=== PATIENT | male | born 1980 | race Hispanic/Latino ===

== ENCOUNTER 2017-02-26 16:59 | Inpatient (IN) | payer MEDICARE, MEDICAID, OTHER ==
--- NOTE | 2017-02-26 17:11 | ED PDOC ---
Arrival/HPI - General Historian: Patient, EMS <Carmen Watkins - Last Filed: 02/26/17 17:07> <Stewart Ardon - Last Filed: 02/26/17 17:17> - General Time Seen by Provider: 02/26/17 17:03 - History of Present Illness Narrative History of Present Illness (Text): 02/26/17 17:07 36 yr old male transferred from [place] for Psychatric admission for bipolor depression with SI. pt states he is depressed and angry and doesnt want to go back to his currently living situation. denies cp or sob. no abdominal pain. no dizziness or weakness. no other complaints. (Carmen Watkins) Past Medical History - Provider Review Nursing Documentation Reviewed: Yes - Travel History Have you recently traveled outside [place] w/in the past 3 mons?: No - Tetanus Immunization Tetanus Immunization: Unknown <Carmen Watkins - Last Filed: 02/26/17 17:07> Family/Social History - Physician Review Nursing Documentation Reviewed: Yes Family/Social History: Unknown Family HX <Carmen Watkins - Last Filed: 02/26/17 17:07> Review of Systems - Review of Systems Constitutional: absent: Fatigue, Fevers Respiratory: absent: SOB, Cough Cardiovascular: absent: Chest Pain, Palpitations Gastrointestinal: absent: Abdominal Pain, Nausea, Vomiting Musculoskeletal: absent: Arthralgias Skin: absent: Rash, Pruritis Neurological: absent: Headache, Dizziness Psychiatric: Depression, Suicidal Ideation <Carmen Watkins - Last Filed: 02/26/17 17:07> Physical Exam Vital Signs Reviewed: Yes Temperature: Afebrile Blood Pressure: Hypertensive Pulse: Regular Respiratory Rate: Normal Appearance: Positive for: Well-Appearing, Non-Toxic, Comfortable Pain Distress: None Mental Status: Positive for: Alert and Oriented X 3 - Systems Exam Head: Present: Atraumatic Mouth: Present: Moist Mucous Membranes Neck: Present: Normal Range of Motion Respiratory/Chest: Present: Clear to Auscultation Cardiovascular: Present: Regular Rate and Rhythm Abdomen: No: Tenderness Neurological: Present: GCS=15, Speech Normal Skin: Present: Warm, Dry, Normal Color. No: Rashes Psychiatric: Present: Alert, Oriented x 3 <Carmen Watkins - Last Filed: 02/26/17 17:07> Vital Signs Temp Pulse Resp BP Pulse Ox 02/26/17 17:11 98.4 F 75 20 153/88 H 99 Medical Decision Making - Lab Interpretations I have reviewed the lab results: Yes <Carmen Watkins - Last Filed: 02/26/17 17:07> <Stewart Ardon - Last Filed: 02/26/17 17:17> ED Course and Treatment: 02/26/17 17:09 36yr old male with bipolar depression. transfer from [place] to go to behavioral health floor. accepting physician dr. phillips/dr. souza. impression; bipolar depression admit to behavioral health floor. (Carmen Watkins) - PA / MEDICATION CARE MANAGER / Resident Statement / has reviewed & agrees with the documentation as recorded. / has examined the patient and agrees with the treatment plan. <Stewart Ardon - Last Filed: 02/26/17 17:17> Disposition/Present on Arrival - Present on Arrival Any Indicators Present on Arrival: No History of DVT/PE: No History of Uncontrolled Diabetes: No Urinary Catheter: No History of Decub. Ulcer: No - Disposition Have Diagnosis and Disposition been Completed?: Yes Disposition Time: 17:10 Patient Plan: Admission <Carmen Watkins - Last Filed: 02/26/17 17:07> <Stewart Ardon - Last Filed: 02/26/17 17:17> - Disposition Diagnosis: Bipolar depression Disposition: HOSPITALIZED Condition: FAIR
--- NOTE | 2017-02-27 00:57 | PCM.BM ---
<Dano Verachris - Last Filed: 02/27/17 00:54> Treatment Plan Problems - Problems identified on initial assessmt Delusions Date Initiated: 02/27/17 Time Initiated: 00:56 Assessment reference: NA Status: Active Altered Thought Process Date Initiated: 02/27/17 Time Initiated: 00:57 Assessment reference: NA Status: Active Medication nonadherence Date Initiated: 02/27/17 Time Initiated: 00:57 Assessment reference: NA Status: Active Altered Sleep Patterns Date Initiated: 02/27/17 Time Initiated: 00:58 Assessment reference: NA Status: Active Treatment assets and liabiliti Patient Assests: cooperative, self-reliant, ADL independent, physically healthy Patient Liabilities: live alone, poor support system - Milieu Protocol Maintain good personal hygiene: daily Encourage regular showers, daily Remind patient to perform daily oral care, daily Assist patient to perform ADL's Maintain personal safety: every shift Educate patient to report safety concerns to staff, every shift Monitor environment for contraband/sharps Medication safety: Monitor for expected outcome, potential side effects: every shift, Assess barriers to learning: every shift, Assess readiness for medication education: every shift Discharge/Continuing Care - Education Needs Education Needs: Patient Medication, Patient Diagnosis/Disease Process, Patient Coping Skills, Patient Community resources, Patient Health Practices/Safety, Patient Aftercare Safety Plan - Discharge Discharge Criteria: Free of Suicidal thoughts, Free of paranoid thoughts, Free of agitation, Normal sleep pattern <Trinh Morgan - Last Filed: 02/28/17 15:31> Family Contact Family involvement: Famliy/SO not involved Family contact: Patient declines to allow family contact at present - Outside Agency [facility] involvment: Following patient during stay, Information-sharing Agency contact name: [facility] Agency contact number: [phone] - Goals for Treatment Patient goals for treatment: "To get a new apartment...I'm being racially profiled." <Marilin Kuhn - Last Filed: 03/02/17 16:01> - Diagnosis (1) Schizoaffective disorder Status: Acute Interventions: 03/02/17 16:01 Psychoeducation/psychotherapy Psychopharmacology/adjustment of medications as needed/ monitoring possible side effects Evaluate pt on daily basis Compliance with medications and follow up appointments Long acting medication if pt is noncompliant with pill form Suicide and homicide risk assessment and prevention, coping strategies, safety plan Relapse prevention Reduction of symptoms Improve functional status Possible assertive community treatment Cognitive behavioral therapy Family involvement Possible social skill training as outpatient
[2017-02-27] MEDS ORDERED: Magnesium Hydroxide Susp 30 ml UD PO PRN (02:27)
[2017-02-27] MEDS: Alum-Mag Hydrox-Simethicone Susp (30 mL) PO PRN (02:31)
[2017-02-27 08:06] LABS: BASO # 0.02 K/mm3 (0.0-2.0); BASO % 0.3 % (0.0-3.0); EOS # 0.1 (0.0-0.7); EOS % 1.2 % (1.5-5.0); GRAN # 2.49 (1.4-6.5); GRAN % 42.2 % (50.0-68.0); HEMATOCRIT 43.6 % (42.0-52.0); LYMPH # 2.9 (1.2-3.4); LYMPH % 49.4 % (22.0-35.0); MEAN CELL VOLUME 92.8 fl (80.0-105.0); MEAN CORPUSCULAR HEMOGLOBIN 32.1 pg (25.0-35.0); MEAN CORPUSCULAR HGB CONC 34.6 g/dl (31.0-37.0); MONO # 0.4 (0.1-0.6); MONO % 6.9 % (1.0-6.0); RED CELL DISTRIBUTION WIDTH 12.2 % (11.5-14.5); WHITE BLOOD COUNT 5.9 10^3/ul (4.5-11.0)
[2017-02-27 08:13] LABS: ALB/GLOB RATIO 1.6 (1.1-1.8); ALKALINE PHOSPHATASE 46 U/L (38-126); ALT/SGPT 63 U/L (7-56); AST/SGOT 33 U/L (17-59); BILIRUBIN,TOTAL 1.5 mg/dL (0.2-1.3); BLOOD UREA NITROGEN 19 mg/dL (7-21); CALCIUM 9.6 mg/dL (8.4-10.5); CARBON DIOXIDE 28 mmol/L (21-33); CHLORIDE 106 mmol/L (98-107); CHOLESTEROL 146 mg/dL (130-200); GFR AFRICAN-AMERICAN > 60; GLUCOSE,RANDOM 98 mg/dL (70-110); POTASSIUM 4.1 mmol/L (3.6-5.0); SODIUM 144 mmol/L (132-148); TOTAL PROTEIN 7.3 g/dL (5.8-8.3)
[2017-02-27 08:27] LABS: FREE T4 0.91 ng/dL (0.78-2.19)
[2017-02-27 08:41] LABS: THYROID STIMULATING HORMONE 2.4 mIU/mL (0.46-4.68)
--- NOTE | 2017-02-27 12:43 | CON ---
DATE: HISTORY OF PRESENT ILLNESS: I saw Tima in the psychiatric unit. I was consulted to take care of him medically. He comes in with a history of being a 36-year-old man from [place] who came in with very bad depression, suicidal ideation and depressed and angry. He do not want to go back to his current living situation and very upset. At this time, he is more comfortable. He is in better spirits and he was telling me that his girlfriend lives 2 hours away and he cannot get to her. He is also very curious about testing for sexually transmitted diseases like HIV because sometimes he does not use a condom when he has sex. sort of preoccupied with that with me, so I will do a HIV test on him. PAST MEDICAL HISTORY: He had no real medical history. There are some bipolar, depression and anger issues. FAMILY HISTORY: No known family history. SOCIAL HISTORY: Denies smoking, drinking or drugs. ALLERGIES HE HAS ALLERGIES TO THORAZINE. REVIEW OF SYSTEMS: No acute vision changes or hearing changes. No sore throat. No chest pain. No shortness of breath. No abdominal pain. No leg pain. He is just upset, depressed and little angry. PHYSICAL EXAMINATION: GENERAL: He is well appearing, nontoxic and comfortable at this time. Alert and oriented x3. VITAL SIGNS: He has 98.4 temperature, 75 pulse, 20 respiratory rate, 153/88 blood pressure and 99% O2 sat on room air. HEENT: Head is atraumatic and normocephalic. Throat is moist. Extraocular muscles are intact. NECK: Supple. HEART: Regular rate. LUNGS: Clear to auscultation bilaterally. No wheezes. No rhonchi. ABDOMEN: Soft and nontender. Positive bowel sounds. No guarding. No rebound. No CVA tenderness. EXTREMITIES: No edema. NEUROLOGIC: GCS is 15. Cranial nerves II through XII grossly intact. He can smile. He can stick out his tongue in midline. He can close his eyes tight. He can put his arms over his head. Alert and oriented x3. THYROID: Midline. No palpable appreciable lymphadenopathy. LABORATORY DATA: He has a 144 sodium, potassium 4.1, BUN 19, creatinine 1, GFR is greater than 60, sugar is 98, calcium is 9.6, total bilirubin is 1.5, AST is 33, ALT is 63, alkaline phosphatase is 46, total protein is 7.3, albumin is 4.5, albumin 2.9, triglycerides 112, total cholesterol is 146, LDL is 108, TSH is 2.4, white count is 5.9, hemoglobin 15.1, hematocrit 43.6 and platelets are 187. ASSESSMENT AND PLAN: He has blood test tomorrow and HIV test tomorrow. I will check his labs. He is on Ativan, milk of magnesia, Maalox, Risperdal and Sonata. Regular diet as per psychiatry. I will continue to follow. His last blood pressure was 126/86. I will put him on blood pressure medications. Bill Jamil DO MTDD
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
[2017-02-28 07:57] LABS: HEMATOCRIT 42.6 % (42.0-52.0); MEAN CORPUSCULAR HEMOGLOBIN 32.5 pg (25.0-35.0); MEAN PLATELET VOLUME 9.9 fl (7.0-11.0); RED CELL DISTRIBUTION WIDTH 12.2 % (11.5-14.5); WHITE BLOOD COUNT 6.8 10^3/ul (4.5-11.0)
[2017-02-28 08:58] LABS: ALB/GLOB RATIO 1.7 (1.1-1.8); ALKALINE PHOSPHATASE 46 U/L (38-126); ALT/SGPT 60 U/L (7-56); AST/SGOT 29 U/L (17-59); BILIRUBIN,TOTAL 1.2 mg/dL (0.2-1.3); BLOOD UREA NITROGEN 18 mg/dL (7-21); CALCIUM 9.3 mg/dL (8.4-10.5); CARBON DIOXIDE 30 mmol/L (21-33); CHLORIDE 104 mmol/L (98-107); GFR AFRICAN-AMERICAN > 60; GLUCOSE,RANDOM 91 mg/dL (70-110); POTASSIUM 4.1 mmol/L (3.6-5.0); SODIUM 144 mmol/L (132-148); TOTAL PROTEIN 6.9 g/dL (5.8-8.3)
--- NOTE | 2017-02-28 10:31 | PN ---
SUBJECTIVE: I saw the patient in his room. He is doing better. He is going to feel better. He had a good night sleep last night. He is eating well. He is on Ativan, Maalox, milk of magnesia, Sonata and Zyprexa. PHYSICAL EXAMINATION: VITAL SIGNS: He has 98.1 temperature, 59 pulse, 123/73 blood pressure, 18 respiratory rate, 96% O2 sat on room air. HEENT: His head is atraumatic and normocephalic. HEART: Regular rate. LUNGS: Clear to auscultation. ABDOMEN: Soft, nontender. EXTREMITIES: No edema. LABORATORY DATA: He has a 6.8 white count, 14.9 hemoglobin, 42.6 hematocrit with 190 platelets. Sodium 144, potassium 4.1, BUN is 18, creatinine 1.1, GFR is greater than 60, sugar is 91, calcium is 9.3. Total bili is 1.2, AST is 29, ALT is 60, alk phos is 46. Total protein is 6.9, albumin is 4.3, globulin 2.6. TSH is 2.4. RPR is nonreactive. He is starting to come around, he tells me is little bit clear. We will continue with aggressive treatment and care by psychiatry. He has depression and bipolar. He had suicidal thoughts, which I think have now sort of left him. We will continue with aggressive treatment and care as per psychiatry. We will follow. Bill Jamil DO MTDD
--- NOTE | 2017-02-28 14:26 | PCM.PYCHPN ---
Psychiatric Progress Note - Psychiatric Progress Note Patient seen today, length of contact: 30min Patient Chief Complaint: "I am okay.." Medical Problems: pt relatively healthy, no major medical issues Diagnostic Results: 02/28/17 07:30 02/28/17 07:30 Lab Results 02/28/17 07:30: Sodium 144, Potassium 4.1, Chloride 104, Carbon Dioxide 30, Anion Gap 14, BUN 18, Creatinine 1.1, Est GFR ( Amer) > 60, Est GFR (Non- Af Amer) > 60, Random Glucose 91, Calcium 9.3, Total Bilirubin 1.2, AST 29, ALT 60 H, Alkaline Phosphatase 46, Total Protein 6.9, Albumin 4.3, Globulin 2.6, Albumin/Globulin Ratio 1.7 02/28/17 07:30: WBC 6.8, RBC 4.58, Hgb 14.9, Hct 42.6, MCV 93.0, MCH 32.5, MCHC 35.0, RDW 12.2, Plt Count 190, MPV 9.9 02/27/17 07:54: RPR Nonreactive 02/27/17 07:54: Free T4 0.91, TSH 3rd Generation 2.40 02/27/17 07:54: Sodium 144, Potassium 4.1, Chloride 106, Carbon Dioxide 28, Anion Gap 14, BUN 19, Creatinine 1.0, Est GFR ( Amer) > 60, Est GFR (Non- Af Amer) > 60, Random Glucose 98, Calcium 9.6, Total Bilirubin 1.5 H, AST 33, ALT 63 H, Alkaline Phosphatase 46, Total Protein 7.3, Albumin 4.5, Globulin 2.9 , Albumin/Globulin Ratio 1.6, Triglycerides 112, Cholesterol 146, LDL Cholesterol Direct 108, HDL Cholesterol 32 02/27/17 07:54: WBC 5.9, RBC 4.70, Hgb 15.1, Hct 43.6, MCV 92.8, MCH 32.1, MCHC 34.6, RDW 12.2, Plt Count 187, MPV 10.0, Gran % 42.2 L, Lymph % (Auto) 49.4 H, Miller % (Auto) 6.9 H, Eos % (Auto) 1.2 L, Baso % (Auto) 0.3, Gran # 2.49, Lymph # 2.9, Miller # 0.4, Eos # 0.1, Baso # 0.02 Vital Signs Temp Pulse Resp BP Pulse Ox 02/28/17 06:47 98.1 F 59 L 18 123/73 96 02/27/17 15:51 78 132/80 02/26/17 19:14 70 18 126/86 96 02/26/17 17:56 98.4 F 68 16 120/85 98 02/26/17 17:11 98.4 F 75 20 153/88 H 99 DSM 5 Symptoms Update: Shortly pt is 36 yo male with long h/o mental illness, most likely h/ o schizoaffective disorder, multiple psychiatric admissions, including state hospitalization, was transferred from the [place] for evaluation of psychotic behavior and possible suicidal and homicidal ideation. pt was seen today with SW, pt has some positive changes, pt is less paranoid, less dramatic, was able to participate in interview. pt is registered sex offender, SW spoke to the [facility] team, pt has h/o with compliance in the past , less paranoid when on meds. See SW notes for more detailed info. pt tolerates meds well, no side effects observed or reported. 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 Impression: schizoaffective disorder CXR: no acute radiographic findings for the chest. EKG WNL UDS negative Treatment plan: Milieu/structure/supportive therapy Medical consult appreciated, see medical team note for more detailed info consultation for discharge plan and social issues Med management zyprexa, will be increased to 2.5mg po am and 5mg hs for psychosis and mood stabilization trazodone 50mg po hs prn for insomnia and depression Family involvement Follow up on labs Will monitor closely SW evaluation for d/c planning Pt was educated about risk/benefits and alternatives of medications, coping strategies (safety plan, suicide prevention), relapse prevention, importance of follow up with psychiatrist and therapist, stay away from drugs/alcohol/smoking tentative discharge on 03/10/17 Medication Change: Yes (zyprexa increased) Medical Record Reviewed: Yes Consults ordered or reviewed: medial consult appreciated Goal/Treatment Plan - Goal/Treatment Plan Need for Continued Stay: Remain at risks for inpatient hospitalization, Severe depression anxiety, Discharge may exacerbated symptoms, Severe functional impairment
--- NOTE | 2017-03-01 09:54 | PN ---
DATE: SUBJECTIVE: I saw him in the psychiatric unit. He is hungry. He is sleeping well. He is feeling better mentally. He feels like he is back to normal, he would like to leave. He is on Ativan, Maalox, milk of magnesia, Sonata, and Zyprexa. He feels clear in the head. PHYSICAL EXAMINATION: VITAL SIGNS: He has 98.1 temperature, 52 pulse, 120/81 blood pressure, 20 respiratory rate, and 96% O2 sat on room air. HEENT: Head is atraumatic and normocephalic. HEART: Regular rate. LUNGS: Clear to auscultation. ABDOMEN: Soft. EXTREMITIES: No edema. ASSESSMENT AND PLAN: He is in good spirits. He is feeling better overall mentally. He is participating. He is eating well and we will see how the psychiatry feels. We will follow. Continue aggressive treatment and care with Tima Murcia, who is here with depression, bipolar, and suicidal ideation. Bill Jamil DO
--- NOTE | 2017-03-01 14:53 | PCM.PYCHPN ---
Psychiatric Progress Note - Psychiatric Progress Note Patient seen today, length of contact: 30min Patient Chief Complaint: "my whole body feels differently, I feel and think better, my thoughts are better organized..." Medical Problems: pt relatively healthy, no major medical issues Diagnostic Results: 02/28/17 07:30 02/28/17 07:30 Lab Results 02/28/17 07:30: Sodium 144, Potassium 4.1, Chloride 104, Carbon Dioxide 30, Anion Gap 14, BUN 18, Creatinine 1.1, Est GFR ( Amer) > 60, Est GFR (Non- Af Amer) > 60, Random Glucose 91, Calcium 9.3, Total Bilirubin 1.2, AST 29, ALT 60 H, Alkaline Phosphatase 46, Total Protein 6.9, Albumin 4.3, Globulin 2.6, Albumin/Globulin Ratio 1.7 02/28/17 07:30: WBC 6.8, RBC 4.58, Hgb 14.9, Hct 42.6, MCV 93.0, MCH 32.5, MCHC 35.0, RDW 12.2, Plt Count 190, MPV 9.9 02/27/17 07:54: RPR Nonreactive 02/27/17 07:54: Free T4 0.91, TSH 3rd Generation 2.40 02/27/17 07:54: Sodium 144, Potassium 4.1, Chloride 106, Carbon Dioxide 28, Anion Gap 14, BUN 19, Creatinine 1.0, Est GFR ( Amer) > 60, Est GFR (Non- Af Amer) > 60, Random Glucose 98, Calcium 9.6, Total Bilirubin 1.5 H, AST 33, ALT 63 H, Alkaline Phosphatase 46, Total Protein 7.3, Albumin 4.5, Globulin 2.9 , Albumin/Globulin Ratio 1.6, Triglycerides 112, Cholesterol 146, LDL Cholesterol Direct 108, HDL Cholesterol 32 02/27/17 07:54: WBC 5.9, RBC 4.70, Hgb 15.1, Hct 43.6, MCV 92.8, MCH 32.1, MCHC 34.6, RDW 12.2, Plt Count 187, MPV 10.0, Gran % 42.2 L, Lymph % (Auto) 49.4 H, [place] % (Auto) 6.9 H, Eos % (Auto) 1.2 L, Baso % (Auto) 0.3, Gran # 2.49, Lymph # 2.9, [place] # 0.4, Eos # 0.1, Baso # 0.02 Vital Signs Temp Pulse Resp BP Pulse Ox 02/28/17 06:47 98.1 F 59 L 18 123/73 96 02/27/17 15:51 78 132/80 02/26/17 19:14 70 18 126/86 96 02/26/17 17:56 98.4 F 68 16 120/85 98 02/26/17 17:11 98.4 F 75 20 153/88 H 99 Temp Pulse Resp BP Pulse Ox 98.1 F 52 L 20 128/81 96 03/01/17 07:16 03/01/17 07:16 03/01/17 07:16 03/01/17 07:16 02/28/17 06:47 DSM 5 Symptoms Update: Shortly pt is 36 yo male with long h/o mental illness, most likely h/ o schizoaffective disorder, multiple psychiatric admissions, including state hospitalization, was transferred from the [facility] for evaluation of psychotic behavior and possible suicidal and homicidal ideation. pt was seen today with SW, pt has some positive changes, pt is less paranoid, less dramatic, was able to participate in interview. pt said that "I think clear now, I feel much better now". pt tolerates meds well, no side effects observed or reported. AIMS 0, no EPS as per RN report pt is is compliant with meds, socially appropriate, less guarded. 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 Impression: schizoaffective disorder CXR: no acute radiographic findings for the chest. EKG WNL UDS negative Treatment plan: Milieu/structure/supportive therapy Medical consult appreciated, see medical team note for more detailed info SW consultation for discharge plan and social issues Med management zyprexa, will be increased to 5mg po am and 5mg hs for psychosis and mood stabilization trazodone 50mg po hs prn for insomnia and depression Family involvement Follow up on labs Will monitor closely SW evaluation for d/c planning Pt was educated about risk/benefits and alternatives of medications, coping strategies (safety plan, suicide prevention), relapse prevention, importance of follow up with psychiatrist and therapist, stay away from drugs/alcohol/smoking tentative discharge on 03/10/17 Medication Change: Yes (zyprexa increased) Medical Record Reviewed: Yes Goal/Treatment Plan - Goal/Treatment Plan Need for Continued Stay: Remain at risks for inpatient hospitalization, Severe depression anxiety, Discharge may exacerbated symptoms, Severe functional impairment
--- NOTE | 2017-03-02 12:19 | PN ---
DATE: SUBJECTIVE: I saw Tima in his room. He is doing much better, ate breakfast well. He is feeling better, looks better, good spirits. No problems with his thoughts. He is on Ativan, Maalox, milk of magnesia, Sonata, and Zyprexa. He is also sleeping well. PHYSICAL EXAMINATION: VITAL SIGNS: 98.1 temperature, 61 pulse, 136/85 blood pressure, 20 respiratory rate and 96% O2 sat on room air. HEART: Regular rate. LUNGS: Clear to auscultation. EXTREMITIES: No edema. Overall I think, he is improved mentally. We will continue to follow. He is eating well, going to the bathroom well and as per psychiatry, to discharge him is improving. We will follow. Bill Jamil DO MTDD
--- NOTE | 2017-03-02 13:56 | PCM.PYCHPN ---
Psychiatric Progress Note - Psychiatric Progress Note Patient seen today, length of contact: 30min Patient Chief Complaint: "I feel better" Medical Problems: pt relatively healthy, no major medical issues Diagnostic Results: 02/28/17 07:30 02/28/17 07:30 Lab Results 02/28/17 07:30: Sodium 144, Potassium 4.1, Chloride 104, Carbon Dioxide 30, Anion Gap 14, BUN 18, Creatinine 1.1, Est GFR ( Amer) > 60, Est GFR (Non- Af Amer) > 60, Random Glucose 91, Calcium 9.3, Total Bilirubin 1.2, AST 29, ALT 60 H, Alkaline Phosphatase 46, Total Protein 6.9, Albumin 4.3, Globulin 2.6, Albumin/Globulin Ratio 1.7 02/28/17 07:30: WBC 6.8, RBC 4.58, Hgb 14.9, Hct 42.6, MCV 93.0, MCH 32.5, MCHC 35.0, RDW 12.2, Plt Count 190, MPV 9.9 02/27/17 07:54: RPR Nonreactive 02/27/17 07:54: Free T4 0.91, TSH 3rd Generation 2.40 02/27/17 07:54: Sodium 144, Potassium 4.1, Chloride 106, Carbon Dioxide 28, Anion Gap 14, BUN 19, Creatinine 1.0, Est GFR ( Amer) > 60, Est GFR (Non- Af Amer) > 60, Random Glucose 98, Calcium 9.6, Total Bilirubin 1.5 H, AST 33, ALT 63 H, Alkaline Phosphatase 46, Total Protein 7.3, Albumin 4.5, Globulin 2.9 , Albumin/Globulin Ratio 1.6, Triglycerides 112, Cholesterol 146, LDL Cholesterol Direct 108, HDL Cholesterol 32 02/27/17 07:54: WBC 5.9, RBC 4.70, Hgb 15.1, Hct 43.6, MCV 92.8, MCH 32.1, MCHC 34.6, RDW 12.2, Plt Count 187, MPV 10.0, Gran % 42.2 L, Lymph % (Auto) 49.4 H, [place] % (Auto) 6.9 H, Eos % (Auto) 1.2 L, Baso % (Auto) 0.3, Gran # 2.49, Lymph # 2.9, [place] # 0.4, Eos # 0.1, Baso # 0.02 Vital Signs Temp Pulse Resp BP Pulse Ox 02/28/17 06:47 98.1 F 59 L 18 123/73 96 02/27/17 15:51 78 132/80 02/26/17 19:14 70 18 126/86 96 02/26/17 17:56 98.4 F 68 16 120/85 98 02/26/17 17:11 98.4 F 75 20 153/88 H 99 Temp Pulse Resp BP Pulse Ox 98.1 F 52 L 20 128/81 96 03/01/17 07:16 03/01/17 07:16 03/01/17 07:16 03/01/17 07:16 02/28/17 06:47 Temp Pulse Resp BP Pulse Ox 98.1 F 61 20 136/85 96 03/01/17 07:16 03/01/17 16:00 03/01/17 07:16 03/01/17 16:00 02/28/17 06:47 DSM 5 Symptoms Update: Shortly pt is 36 yo male with long h/o mental illness, most likely h/ o schizoaffective disorder, multiple psychiatric admissions, including state hospitalization, was transferred from the [facility] for evaluation of psychotic behavior and possible suicidal and homicidal ideation. pt was seen today at the [facility], pt has some positive changes, pt is less paranoid, less dramatic, was able to participate in interview. pt said that "I think clear now, I feel much better now". pt wants to present better than actually is, pt still guarded, all or nothing thinking. pt tolerates meds well, no side effects observed or reported. AIMS 0, no EPS as per RN report pt is is compliant with meds, socially appropriate, less guarded. 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 Impression: schizoaffective disorder CXR: no acute radiographic findings for the chest. EKG WNL UDS negative Treatment plan: Milieu/structure/supportive therapy Medical consult appreciated, see medical team note for more detailed info SW consultation for discharge plan and social issues Med management zyprexa increased to 5mg po am and 5mg hs for psychosis and mood stabilization trazodone 50mg po hs prn for insomnia and depression Family involvement Follow up on labs Will monitor closely evaluation for d/c planning Pt was educated about risk/benefits and alternatives of medications, coping strategies (safety plan, suicide prevention), relapse prevention, importance of follow up with psychiatrist and therapist, stay away from drugs/alcohol/smoking tentative discharge on 03/10/17 Medication Change: No (zyprexa increased yesterday) Medical Record Reviewed: Yes Consults ordered or reviewed: medial consult appreciated Goal/Treatment Plan - Goal/Treatment Plan Need for Continued Stay: Remain at risks for inpatient hospitalization, Severe depression anxiety, Discharge may exacerbated symptoms, Severe functional impairment
--- NOTE | 2017-03-03 12:17 | PN ---
SUBJECTIVE: I saw the patient. He ate his breakfast well. He tells me he is improving. He is taking his medication. He is hoping to be discharged tomorrow, Monday. MEDICATIONS: He is on Ativan, MiraLax, milk of magnesia, Sonata and Zyprexa. To me, he also seems much improved and better, no more thoughts of anything like that that is bad. PHYSICAL EXAMINATION: VITAL SIGNS: He has a 97.4 temperature, 50 pulse, also 73 pulse, 118/76 blood pressure, 20 respiratory rate. HEENT: His head is atraumatic and normocephalic. HEART: Regular rate. LUNGS: Clear to auscultation. ABDOMEN: Soft. EXTREMITIES: No edema. He is being seen by psychiatry, they are treating him for depression and bipolar. He had suicidal ideation. Hopefully, he will be able to be discharged when psychiatry feels he is ready. Continue aggressive treatment and care. We will follow. Thank you very much. Bill Jamil DO
--- NOTE | 2017-03-04 11:03 | PCM.PYCHPN ---
Psychiatric Progress Note - Psychiatric Progress Note Patient seen today, length of contact: 30min Patient Chief Complaint: "I like medications a lot, I know that I need to continue it, I will set my alarm for every hour and I will make sure I will take my medications" Medical Problems: pt relatively healthy, no major medical issues Diagnostic Results: 02/28/17 07:30 02/28/17 07:30 Lab Results 02/28/17 07:30: Sodium 144, Potassium 4.1, Chloride 104, Carbon Dioxide 30, Anion Gap 14, BUN 18, Creatinine 1.1, Est GFR ( Amer) > 60, Est GFR (Non- Af Amer) > 60, Random Glucose 91, Calcium 9.3, Total Bilirubin 1.2, AST 29, ALT 60 H, Alkaline Phosphatase 46, Total Protein 6.9, Albumin 4.3, Globulin 2.6, Albumin/Globulin Ratio 1.7 02/28/17 07:30: WBC 6.8, RBC 4.58, Hgb 14.9, Hct 42.6, MCV 93.0, MCH 32.5, MCHC 35.0, RDW 12.2, Plt Count 190, MPV 9.9 02/27/17 07:54: RPR Nonreactive 02/27/17 07:54: Free T4 0.91, TSH 3rd Generation 2.40 02/27/17 07:54: Sodium 144, Potassium 4.1, Chloride 106, Carbon Dioxide 28, Anion Gap 14, BUN 19, Creatinine 1.0, Est GFR ( Amer) > 60, Est GFR (Non- Af Amer) > 60, Random Glucose 98, Calcium 9.6, Total Bilirubin 1.5 H, AST 33, ALT 63 H, Alkaline Phosphatase 46, Total Protein 7.3, Albumin 4.5, Globulin 2.9 , Albumin/Globulin Ratio 1.6, Triglycerides 112, Cholesterol 146, LDL Cholesterol Direct 108, HDL Cholesterol 32 02/27/17 07:54: WBC 5.9, RBC 4.70, Hgb 15.1, Hct 43.6, MCV 92.8, MCH 32.1, MCHC 34.6, RDW 12.2, Plt Count 187, MPV 10.0, Gran % 42.2 L, Lymph % (Auto) 49.4 H, [place] % (Auto) 6.9 H, Eos % (Auto) 1.2 L, Baso % (Auto) 0.3, Gran # 2.49, Lymph # 2.9, [place] # 0.4, Eos # 0.1, Baso # 0.02 Vital Signs Temp Pulse Resp BP Pulse Ox 02/28/17 06:47 98.1 F 59 L 18 123/73 96 02/27/17 15:51 78 132/80 02/26/17 19:14 70 18 126/86 96 02/26/17 17:56 98.4 F 68 16 120/85 98 02/26/17 17:11 98.4 F 75 20 153/88 H 99 Temp Pulse Resp BP Pulse Ox 98.1 F 52 L 20 128/81 96 03/01/17 07:16 03/01/17 07:16 03/01/17 07:16 03/01/17 07:16 02/28/17 06:47 Temp Pulse Resp BP Pulse Ox 98.1 F 61 20 136/85 96 03/01/17 07:16 03/01/17 16:00 03/01/17 07:16 03/01/17 16:00 02/28/17 06:47 DSM 5 Symptoms Update: Shortly pt is 36 yo male with long h/o mental illness, most likely h/ o schizoaffective disorder, multiple psychiatric admissions, including state hospitalization, was transferred from the [facility] for evaluation of psychotic behavior and possible suicidal and homicidal ideation. pt was seen today next to the nursing station, pt is intrusive, keep asking the same question again and again, pt said "I feel better", pt reported "I like medications a lot, I know that I need to continue it, I will set my alarm for every hour and I will make sure I will take my medications", pt was advised not to set alarm for every hour but twice a day, pt agreed. pt wants to present better than actually is, pt still guarded, all or nothing thinking. pt tolerates meds well, no side effects observed or reported. AIMS 0, no EPS, pt has some restlessness, will add ativan as per RN report pt is is compliant with meds, socially appropriate, less guarded. 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 Impression: schizoaffective disorder CXR: no acute radiographic findings for the chest. EKG WNL UDS negative Treatment plan: Milieu/structure/supportive therapy Medical consult appreciated, see medical team note for more detailed info consultation for discharge plan and social issues Med management zyprexa 5mg po am and 10mg hs for psychosis and mood stabilization addendum pt was on ativan 1mg po bid for restlessness, will increase it further 2mg bid sonata 10mg po hs for insomnia conference call will take place on Monday with RIST team Family involvement Follow up on labs Will monitor closely evaluation for d/c planning Pt was educated about risk/benefits and alternatives of medications, coping strategies (safety plan, suicide prevention), relapse prevention, importance of follow up with psychiatrist and therapist, stay away from drugs/alcohol/smoking tentative discharge on 03/06-03/07/17 Medication Change: Yes (ativan increased 2mg po bid) Medical Record Reviewed: Yes Goal/Treatment Plan - Goal/Treatment Plan Need for Continued Stay: Remain at risks for inpatient hospitalization, Severe depression anxiety, Discharge may exacerbated symptoms, Severe functional impairment
--- NOTE | 2017-03-05 11:51 | PCM.PYCHPN ---
Psychiatric Progress Note - Psychiatric Progress Note Patient seen today, length of contact: 30min Patient Chief Complaint: "I feel better" Medical Problems: pt relatively healthy, no major medical issues Diagnostic Results: 02/28/17 07:30 02/28/17 07:30 Lab Results 02/28/17 07:30: Sodium 144, Potassium 4.1, Chloride 104, Carbon Dioxide 30, Anion Gap 14, BUN 18, Creatinine 1.1, Est GFR ( Amer) > 60, Est GFR (Non- Af Amer) > 60, Random Glucose 91, Calcium 9.3, Total Bilirubin 1.2, AST 29, ALT 60 H, Alkaline Phosphatase 46, Total Protein 6.9, Albumin 4.3, Globulin 2.6, Albumin/Globulin Ratio 1.7 02/28/17 07:30: WBC 6.8, RBC 4.58, Hgb 14.9, Hct 42.6, MCV 93.0, MCH 32.5, MCHC 35.0, RDW 12.2, Plt Count 190, MPV 9.9 02/27/17 07:54: RPR Nonreactive 02/27/17 07:54: Free T4 0.91, TSH 3rd Generation 2.40 02/27/17 07:54: Sodium 144, Potassium 4.1, Chloride 106, Carbon Dioxide 28, Anion Gap 14, BUN 19, Creatinine 1.0, Est GFR ( Amer) > 60, Est GFR (Non- Af Amer) > 60, Random Glucose 98, Calcium 9.6, Total Bilirubin 1.5 H, AST 33, ALT 63 H, Alkaline Phosphatase 46, Total Protein 7.3, Albumin 4.5, Globulin 2.9 , Albumin/Globulin Ratio 1.6, Triglycerides 112, Cholesterol 146, LDL Cholesterol Direct 108, HDL Cholesterol 32 02/27/17 07:54: WBC 5.9, RBC 4.70, Hgb 15.1, Hct 43.6, MCV 92.8, MCH 32.1, MCHC 34.6, RDW 12.2, Plt Count 187, MPV 10.0, Gran % 42.2 L, Lymph % (Auto) 49.4 H, [place] % (Auto) 6.9 H, Eos % (Auto) 1.2 L, Baso % (Auto) 0.3, Gran # 2.49, Lymph # 2.9, [place] # 0.4, Eos # 0.1, Baso # 0.02 Vital Signs Temp Pulse Resp BP Pulse Ox 02/28/17 06:47 98.1 F 59 L 18 123/73 96 02/27/17 15:51 78 132/80 02/26/17 19:14 70 18 126/86 96 02/26/17 17:56 98.4 F 68 16 120/85 98 02/26/17 17:11 98.4 F 75 20 153/88 H 99 Temp Pulse Resp BP Pulse Ox 98.1 F 52 L 20 128/81 96 03/01/17 07:16 03/01/17 07:16 03/01/17 07:16 03/01/17 07:16 02/28/17 06:47 Temp Pulse Resp BP Pulse Ox 98.1 F 61 20 136/85 96 03/01/17 07:16 03/01/17 16:00 03/01/17 07:16 03/01/17 16:00 02/28/17 06:47 DSM 5 Symptoms Update: Shortly pt is 36 yo male with long h/o mental illness, most likely h/ o schizoaffective disorder, multiple psychiatric admissions, including state hospitalization, was transferred from the [facility] for evaluation of psychotic behavior and possible suicidal and homicidal ideation. pt was seen today next to the nursing station, pt is intrusive, childlike demeanor, reported "I feel better", denied any side effects from meds, denied paranoid ideation, denied hearing voices and seeing things, delusions of grandior subsided. pt tolerates meds well, no side effects observed or reported. AIMS 0, no EPS, pt has some restlessness, will add ativan as per RN report pt is is compliant with meds, socially appropriate, less guarded. 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 Impression: schizoaffective disorder CXR: no acute radiographic findings for the chest. EKG WNL UDS negative Treatment plan: Milieu/structure/supportive therapy Medical consult appreciated, see medical team note for more detailed info consultation for discharge plan and social issues Med management zyprexa 5mg po am and 10mg hs for psychosis and mood stabilization ativan 2mg bid for restlessness and akathesia sonata 10mg po hs for insomnia conference call will take place on Monday with RIST team Family involvement Follow up on labs Will monitor closely evaluation for d/c planning Pt was educated about risk/benefits and alternatives of medications, coping strategies (safety plan, suicide prevention), relapse prevention, importance of follow up with psychiatrist and therapist, stay away from drugs/alcohol/smoking tentative discharge on 03/06-03/07/17 Medication Change: Yes (ativan increased 2mg po bid) Medical Record Reviewed: Yes Goal/Treatment Plan - Goal/Treatment Plan Need for Continued Stay: Remain at risks for inpatient hospitalization, Severe depression anxiety, Discharge may exacerbated symptoms, Severe functional impairment
[2017-03-05 16:55] VITALS: O2SAT 69
[2017-03-05] MEDS: Alum-Mag Hydrox-Simethicone Susp (30 mL) PO PRN (23:11)
--- NOTE | 2017-03-06 11:08 | PCM.BM ---
<Arturo Sandoval - Last Filed: 03/06/17 11:10> Treatment Plan Problems - Problems identified on initial assessmt Delusions Date Initiated: 02/27/17 Time Initiated: 00:56 Date resolved: 03/06/17 Assessment reference: NA Status: Active Altered Thought Process Date Initiated: 02/27/17 Time Initiated: 00:57 Date resolved: 03/06/17 Assessment reference: NA Status: Active Medication nonadherence Date Initiated: 02/27/17 Time Initiated: 00:57 Date resolved: 03/06/17 Assessment reference: NA Status: Active Altered Sleep Patterns Date Initiated: 02/27/17 Time Initiated: 00:58 Date resolved: 03/06/17 Assessment reference: NA Status: Active Treatment assets and liabiliti Patient Assests: cooperative, self-reliant, ADL independent, physically healthy Patient Liabilities: live alone, poor support system - Milieu Protocol Maintain good personal hygiene: daily Encourage regular showers, daily Remind patient to perform daily oral care, daily Assist patient to perform ADL's Maintain personal safety: every shift Educate patient to report safety concerns to staff, every shift Monitor environment for contraband/sharps Medication safety: Monitor for expected outcome, potential side effects: every shift, Assess barriers to learning: every shift, Assess readiness for medication education: every shift Family Contact Family involvement: Famliy/SO not involved Family contact: Patient declines to allow family contact at present - Outside Agency [facility] involvment: Not involved [facility] involvment: Following patient during stay, Information-sharing Agency contact name: [facility] Agency contact number: [phone] - Goals for Treatment Patient goals for treatment: "To get a new apartment...I'm being racially profiled." Discharge/Continuing Care - Education Needs Education Needs: Patient Medication, Patient Diagnosis/Disease Process, Patient Coping Skills, Patient Community resources, Patient Health Practices/Safety, Patient Aftercare Safety Plan - Discharge Discharge Criteria: Free of Suicidal thoughts, Free of paranoid thoughts, Free of agitation, Normal sleep pattern Treatment Plan Review - Problem Delusions Time Initiated: 00:56 Altered Thought Process Time Initiated: 00:57 Medication nonadherence Time Initiated: 00:57 Altered Sleep Patterns Time Initiated: 00:58 <Marilin Kuhn - Last Filed: 03/06/17 15:50> - Diagnosis (1) Schizoaffective disorder Status: Acute Interventions: 03/06/17 15:48 patient much improved, mood is more stable, grandiosity/psychosis are gone, patient is compliant with the medications, no side effects observed or reported, RIST team involved, as per collaterals pt improved. see notes for more detailed info. denied suicidal or homicidal ideation Past future oriented plans Insight improved Patient is willing to be followed up with outpatient psychiatrist and therapist as well as intensive outpatient program 03/06/17 15:50
--- NOTE | 2017-03-06 13:21 | PN ---
DATE: SUBJECTIVE: The patient is seen and examined in the psychiatric [facility]. Currently, no chest pain, no shortness of breath, no nausea, no vomiting. PHYSICAL EXAMINATION: VITAL SIGNS: Blood pressure is 130/72, pulse rate of 77, and O2 saturation was 98% on room air. HEENT: Normocephalic and atraumatic. Pale conjunctivae. Anicteric sclerae. NECK: No JVD. No thyromegaly. CARDIOVASCULAR: Regular rate and rhythm. S1 and S2 appreciated. No S3 noted. LUNGS: Bilateral air entry is positive. No wheezes or rhonchi. ABDOMEN: Nondistended and nontender. Positive bowel sounds. EXTREMITIES: Peripheral pulses are +2. No pitting edema. ASSESSMENT AND PLAN: At this time, we will continue with the current treatment that the patient receiving including Ativan as well as Zyprexa, and we will follow this patient very closely with labs to be done tomorrow. Sidney Griffin MD
--- NOTE | 2017-03-06 15:56 | PCM.PYCHPN ---
Psychiatric Progress Note - Psychiatric Progress Note Patient seen today, length of contact: 30min Patient Chief Complaint: "I feel little bit groggy, can you decrease my medications?" Medical Problems: pt relatively healthy, no major medical issues Diagnostic Results: 02/28/17 07:30 02/28/17 07:30 Lab Results 02/28/17 07:30: Sodium 144, Potassium 4.1, Chloride 104, Carbon Dioxide 30, Anion Gap 14, BUN 18, Creatinine 1.1, Est GFR ( Amer) > 60, Est GFR (Non- Af Amer) > 60, Random Glucose 91, Calcium 9.3, Total Bilirubin 1.2, AST 29, ALT 60 H, Alkaline Phosphatase 46, Total Protein 6.9, Albumin 4.3, Globulin 2.6, Albumin/Globulin Ratio 1.7 02/28/17 07:30: WBC 6.8, RBC 4.58, Hgb 14.9, Hct 42.6, MCV 93.0, MCH 32.5, MCHC 35.0, RDW 12.2, Plt Count 190, MPV 9.9 02/27/17 07:54: RPR Nonreactive 02/27/17 07:54: Free T4 0.91, TSH 3rd Generation 2.40 02/27/17 07:54: Sodium 144, Potassium 4.1, Chloride 106, Carbon Dioxide 28, Anion Gap 14, BUN 19, Creatinine 1.0, Est GFR ( Amer) > 60, Est GFR (Non- Af Amer) > 60, Random Glucose 98, Calcium 9.6, Total Bilirubin 1.5 H, AST 33, ALT 63 H, Alkaline Phosphatase 46, Total Protein 7.3, Albumin 4.5, Globulin 2.9 , Albumin/Globulin Ratio 1.6, Triglycerides 112, Cholesterol 146, LDL Cholesterol Direct 108, HDL Cholesterol 32 02/27/17 07:54: WBC 5.9, RBC 4.70, Hgb 15.1, Hct 43.6, MCV 92.8, MCH 32.1, MCHC 34.6, RDW 12.2, Plt Count 187, MPV 10.0, Gran % 42.2 L, Lymph % (Auto) 49.4 H, Teller % (Auto) 6.9 H, Eos % (Auto) 1.2 L, Baso % (Auto) 0.3, Gran # 2.49, Lymph # 2.9, Teller # 0.4, Eos # 0.1, Baso # 0.02 Vital Signs Temp Pulse Resp BP Pulse Ox 02/28/17 06:47 98.1 F 59 L 18 123/73 96 02/27/17 15:51 78 132/80 02/26/17 19:14 70 18 126/86 96 02/26/17 17:56 98.4 F 68 16 120/85 98 02/26/17 17:11 98.4 F 75 20 153/88 H 99 Temp Pulse Resp BP Pulse Ox 98.1 F 52 L 20 128/81 96 03/01/17 07:16 03/01/17 07:16 03/01/17 07:16 03/01/17 07:16 02/28/17 06:47 Temp Pulse Resp BP Pulse Ox 98.1 F 61 20 136/85 96 03/01/17 07:16 03/01/17 16:00 03/01/17 07:16 03/01/17 16:00 02/28/17 06:47 Temp Pulse Resp BP Pulse Ox 97.7 F 65 18 130/72 69 L 03/05/17 06:51 03/05/17 06:51 03/05/17 06:51 03/05/17 16:54 03/05/17 16:54 DSM 5 Symptoms Update: Shortly pt is 36 yo male with long h/o mental illness, most likely h/ o schizoaffective disorder, multiple psychiatric admissions, including state hospitalization, was transferred from the [facility] for evaluation of psychotic behavior and possible suicidal and homicidal ideation. pt was seen today next to the nursing station, pt is intrusive, childlike demeanor, reported "I feel better", denied any side effects from meds, denied paranoid ideation, denied hearing voices and seeing things, delusions of grandior subsided. pt complained to feel "groggy" asked at to plan to be decreased. AIMS 0, no EPS , pt has some restlessness, will add ativan as per RN report pt is is compliant with meds, socially appropriate, less guarded. [facility] team embedded case manager, Sallie Rcie([phone]) participated via conference call. PT's case supervisor reports other case workers having spoken to patient over the weekend in which pt was reported to have been doing better. treatment plan was d/w pt and embedded case manager, all questions answered, concerns addressed. PT denies any SI/HI, deems ready for d/c tomorrow. MSE: Pt has good personal hygiene, good ADLs, there is no psychomotor agitation/ retardation, speech was: normal tone, quality and quantity, eye contact: intense , mood described: "I think clear now, I probably was very sick, I was talking about fancy cars, but I have no car", affect: constricted but reactive, mood congruent, thought process: goal directed, thought content: better organized, less paranoid, denied si/hi, insight/judgment:fair, impulses are well controlled. Impression: schizoaffective disorder CXR: no acute radiographic findings for the chest. EKG WNL UDS negative Treatment plan: Milieu/structure/supportive therapy Medical consult appreciated, see medical team note for more detailed info SW consultation for discharge plan and social issues Med management zyprexa 5mg po am and 10mg hs for psychosis and mood stabilization ativan 1mg bid for restlessness and akathesia sonata 10mg po hs for insomnia conference call will take place on Monday with RIST team Family involvement Follow up on labs Will monitor closely SW evaluation for d/c planning Pt was educated about risk/benefits and alternatives of medications, coping strategies (safety plan, suicide prevention), relapse prevention, importance of follow up with psychiatrist and therapist, stay away from drugs/alcohol/smoking tentative discharge on 03/07/17 Medication Change: Yes (Ativan decreased) Medical Record Reviewed: Yes Goal/Treatment Plan - Goal/Treatment Plan Need for Continued Stay: Remain at risks for inpatient hospitalization, Severe depression anxiety, Discharge may exacerbated symptoms, Severe functional impairment
[2017-03-07 06:57] VITALS: BP 119/76; PULSE 63; RESP 20; TEMP 97.6
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
--- NOTE | 2017-03-07 13:37 | PN ---
DATE: SUBJECTIVE: I saw him, he is doing much better. He has no complaints, feeling better, and taking his medications. Good spirits. No more bad thoughts. He is on Ativan, Maalox, milk of magnesia, Sonata, and Zyprexa. He is sleeping well and eating well. PHYSICAL EXAMINATION: GENERAL: He has 97.6 temperature, 63 pulse, 119/76 blood pressure, 20 respiratory rate, and 96% O2 sat on room air. HEENT: His head is atraumatic and normocephalic. Throat is moist. NECK: Supple. HEART: Regular rate. LUNGS: Clear to auscultation. ABDOMEN: Soft. EXTREMITIES: No edema. He tells me he is going home today that will be fantastic, hope he does very well. I discussed being careful when outside to take his medications and he tells me he will and he will do very well. Bill Jamil DO
== END 2017-03-07 12:41 | disposition home or self-care (01) | DRG 885 ==
LOC: ED 16:59 → PSYC 17:35
PROVIDERS: ADMIT Psychiatry & Neurology Psychiatry; ATTEND Psychiatry & Neurology Psychiatry
DX: F25.9 Schizoaffective disorder, unspecified (principal); Z91.14 Patient's other noncompliance with medication regimen